=== PATIENT | female | born 1990 | race Caucasian/White ===

== ENCOUNTER 2018-07-31 09:57 | Emergency (ER) | payer OTHER ==
[2017-07-20 09:29] VITALS: Wt 76.2 kg
[~2018-07-31 09:57] MED LIST: DOCU240C67 PO; IBUP800T37 PO; LORA10CA3 PO; Lanolin TP; NORG1TAB5 PO; PER PO; PREN-127 PO; SCOT TD
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
[2018-07-31 10:51] VITALS: BP 107/76
== END 2018-07-31 11:00 | disposition home or self-care (01) ==
LOC: ER 10:10
DX: S16.1XXA Strain of muscle, fascia and tendon at neck level, initial encounter (principal); V49.9XXA Car occupant (driver) (passenger) injured in unspecified traffic accident, initial encounter
CPT/HCPCS: 72040; 99283; L0172